=== PATIENT | female | born 1935 | race Caucasian/White ===

== ENCOUNTER 2022-04-05 13:08 | Inpatient (IN) | payer MEDICARE ==
[2022-04-05 14:42] VITALS: BMI 20.7
[2022-04-05] MEDS ORDERED: Ondansetron PF 4 MG/2 ML Vial IVP PRN (18:36)
[2022-04-05] MEDS ORDERED: Acetaminophen 325 MG TAB PO PRN (18:36)
[2022-04-05] MEDS ORDERED: LORATADINE PO PRN (18:41)
[2022-04-05] MEDS ORDERED: PSEUDOEPHEDRINE PO PRN (18:41)
[2022-04-05] MEDS ORDERED: Nitroglycerin 0.4 MG TAB (25 Tab Bottle) SL PRN (18:41)
[2022-04-05] MEDS ORDERED: [UNRECOGNIZED DRUG - OTHER] PO PRN (18:41)
[2022-04-05] MEDS ORDERED: Non-Formulary Medication 1 EACH (Evolocumab [Repatha Sureclick] 140 MG/ML Pen.Injctr) SQ SCH (18:45)
[2022-04-05] MEDS ORDERED: UBIDECARENONE 100 MG PO SCH (18:45)
[2022-04-05] MEDS ORDERED: [UNRECOGNIZED DRUG - OTHER] PO SCH (18:45)
[2022-04-05] MEDS ORDERED: cefTRIAXone\\ROCEPHIN 1 GM in Sodium Chloride 0.9% 100 ML IVPB SCH (19:00)
[2022-04-05] MEDS ORDERED: Meropenem 1 GM in Sodium Chloride 0.9% 100 ML IVPB SCH (20:00)
[2022-04-05] MEDS: Mirtazapine 15 MG TAB PO SCH (20:52)
[2022-04-05] MEDS: Carvedilol 3.125 MG TAB PO SCH (20:52)
[2022-04-05] MEDS: Rosuvastatin 10 MG TAB PO SCH (20:53)
[2022-04-05 21:47] LABS: Bilirubin 1+ (Negative); Blood, Urine 10 (Negative); Clarity Clear (Clear); Glucose, Urine (Dipstick) Normal (Negative); Ketone, Urine 150 mg/dL (Negative); Leukocyte Negative (Negative); Nitrite Negative (Negative); Protein, Urine (Dipstick) 30 mg/dl (Neg-Trace)
[2022-04-05 22:46] LABS: Bacteria/HPF Rare-Few HPF (None Seen); RBC/HPF 0-3 HPF (0-3); Squamous Epithelial 0-3 HPF (0-3); Transitional Epithelial 0-3 HPF (None Seen)
[2022-04-06] MEDS ORDERED: Amlodipine 5 MG TAB PO SCH (00:30)
[2022-04-06] MEDS: Acetaminophen 325 MG TAB PO PRN (01:20)
[2022-04-06] MEDS: Meropenem 1 GM in Sodium Chloride 0.9% 100 ML IVPB SCH ×2 (04:40→15:51)
[2022-04-06 05:06] LABS: #Eosinphils 0.1 10x3/uL (0.0-0.5); #Monocytes 0.5 10x3/uL (0.0-1.1); #Neutrophils 3.4 10x3/uL (1.5-8.4); %Basophils 0.2 % (0.0-2.0); %Eosinophils 2.3 % (0.0-6.0); %Lymphocytes 27.5 % (18.0-47.0); %Monocytes 9.5 % (0.0-10.0); %Neutrophils 60.3 % (40.0-75.0); Hemoglobin 9.5 g/dL (12.0-15.5); Mean Corpuscular HGB CONC 33.2 g/dL (32.0-36.0); Mean Corpuscular Hemoglobin 31.4 pg (27.0-33.0); Mean Corpuscular Volume 94.4 fl (81.6-98.3); Platelet Count 171 10x3/uL (150-450); RBC Distribution Width 13.6 % (11.5-14.5); Red Blood Cell (RBC) Count 3.03 10x6/uL (3.90-5.03); White Blood Cell (WBC) Count 5.6 10x3/uL (3.5-10.5)
[2022-04-06 05:27] LABS: Anion Gap 15 mmol/L (10-20); BUN (Urea Nitrogen) 15 mg/dL (9.8-20.1); Calc. Creatinine Clearance 47 mL/min (70-130); Calcium 9.3 mg/dL (7.8-10.44); Carbon Dioxide 22 mmol/L (23-31); Chloride 109 mmol/L (98-107); Estimated GFR 76; Glucose 77 mg/dL (83-110); Potassium 3.7 mmol/L (3.5-5.1); Sodium 142 mmol/L (136-145)
[2022-04-06] MEDS ORDERED: Dextrose 50% Abboject 50 ML SYRINGE ONE (08:07)
[2022-04-06] MEDS ORDERED: Dextrose 50% Abboject 50 ML SYRINGE SLOW IVP SCH (08:30)
[2022-04-06] MEDS: Carvedilol 3.125 MG TAB PO SCH ×2 (11:32→21:00)
[2022-04-06] MEDS: Aspirin 81 mg Enteric Coated Tablet PO SCH (11:32)
[2022-04-06] MEDS: Multivit, Therapeutic 1 TAB PO SCH (11:32)
[2022-04-06] MEDS: Mirtazapine 15 MG TAB PO SCH (20:59)
[2022-04-06] MEDS: Rosuvastatin 10 MG TAB PO SCH (21:00)
[2022-04-07] MEDS: Meropenem 1 GM in Sodium Chloride 0.9% 100 ML IVPB SCH (04:51)
[2022-04-07] MEDS: Multivit, Therapeutic 1 TAB PO SCH (09:16)
[2022-04-07] MEDS: Aspirin 81 mg Enteric Coated Tablet PO SCH (09:16)
[2022-04-07] MEDS: Carvedilol 3.125 MG TAB PO SCH ×2 (09:16→21:00)
[2022-04-07 09:22] LABS: #Eosinphils 0.1 10x3/uL (0.0-0.5); #Monocytes 0.5 10x3/uL (0.0-1.1); %Basophils 0.2 % (0.0-2.0); %Eosinophils 1.2 % (0.0-6.0); %Lymphocytes 28.5 % (18.0-47.0); %Monocytes 11.6 % (0.0-10.0); Hemoglobin 9.3 g/dL (12.0-15.5); Mean Corpuscular HGB CONC 32.9 g/dL (32.0-36.0); Mean Corpuscular Hemoglobin 31.2 pg (27.0-33.0); Mean Platelet Volume 11.8 fl (7.4-10.4); Platelet Count 164 10x3/uL (150-450); RBC Distribution Width 13.7 % (11.5-14.5); Red Blood Cell (RBC) Count 2.98 10x6/uL (3.90-5.03); White Blood Cell (WBC) Count 4.1 10x3/uL (3.5-10.5)
[2022-04-07 09:23] LABS: #Neutrophils 2.4 10x3/uL (1.5-8.4); %Neutrophils 58.5 % (40.0-75.0)
[2022-04-07 09:35] LABS: Anion Gap 11 mmol/L (10-20); BUN (Urea Nitrogen) 16 mg/dL (9.8-20.1); Calc. Creatinine Clearance 45 mL/min (70-130); Calcium 9.2 mg/dL (7.8-10.44); Carbon Dioxide 25 mmol/L (23-31); Chloride 108 mmol/L (98-107); Estimated GFR 72; Glucose 82 mg/dL (83-110); Potassium 3.7 mmol/L (3.5-5.1); Sodium 140 mmol/L (136-145)
[2022-04-07] MEDS ORDERED: Nitrofurantoin Monohyd/M-Cryst 100 MG CAP PO SCH (11:00)
[2022-04-07] MEDS: Mirtazapine 15 MG TAB PO SCH (21:00)
[2022-04-07] MEDS: Rosuvastatin 10 MG TAB PO SCH (21:00)
[2022-04-07] MEDS: Nitrofurantoin Monohyd/M-Cryst 100 MG CAP PO SCH (21:01)
[2022-04-08 04:09] LABS: #Eosinphils 0.1 10x3/uL (0.0-0.5); #Monocytes 0.7 10x3/uL (0.0-1.1); #Neutrophils 2.8 10x3/uL (1.5-8.4); %Basophils 0.2 % (0.0-2.0); %Eosinophils 2.3 % (0.0-6.0); %Lymphocytes 30.7 % (18.0-47.0); %Monocytes 13.2 % (0.0-10.0); %Neutrophils 53.4 % (40.0-75.0); Hemoglobin 9.6 g/dL (12.0-15.5); Mean Corpuscular HGB CONC 33.4 g/dL (32.0-36.0); Mean Corpuscular Hemoglobin 31.3 pg (27.0-33.0); Mean Corpuscular Volume 93.5 fl (81.6-98.3); Mean Platelet Volume 11.4 fl (7.4-10.4); Platelet Count 162 10x3/uL (150-450); RBC Distribution Width 13.5 % (11.5-14.5); Red Blood Cell (RBC) Count 3.07 10x6/uL (3.90-5.03); White Blood Cell (WBC) Count 5.2 10x3/uL (3.5-10.5)
[2022-04-08 04:28] LABS: Anion Gap 14 mmol/L (10-20); BUN (Urea Nitrogen) 22 mg/dL (9.8-20.1); Calc. Creatinine Clearance 47 mL/min (70-130); Calcium 9.3 mg/dL (7.8-10.44); Carbon Dioxide 23 mmol/L (23-31); Chloride 108 mmol/L (98-107); Estimated GFR 75; Glucose 87 mg/dL (83-110); Potassium 3.9 mmol/L (3.5-5.1); Sodium 141 mmol/L (136-145)
[2022-04-08] MEDS: Multivit, Therapeutic 1 TAB PO SCH (11:53)
[2022-04-08] MEDS: Aspirin 81 mg Enteric Coated Tablet PO SCH (11:54)
[2022-04-08] MEDS: Carvedilol 3.125 MG TAB PO SCH ×2 (11:54→20:32)
[2022-04-08] MEDS: Nitrofurantoin Monohyd/M-Cryst 100 MG CAP PO SCH ×2 (11:54→20:32)
[2022-04-08 12:16] LABS: ALT (SGPT) 13 U/L (8-55); AST (SGOT) 20 U/L (5-34); Albumin 3.4 g/dL (3.4-4.8); Alkaline Phosphatase 58 U/L (40-110); Bilirubin, Direct 0.2 mg/dL (0.1-0.3); Bilirubin, Total 0.4 mg/dL (0.2-1.2)
[2022-04-08 14:41] LABS: HIV (1/2) Antibody/Antigen Non-Reactive (NonReactive); HIV 1/2 INDEX 0.28 S/CO (<1.00); Syphilis Antibody Nonreactive (Nonreactive); Syphilis Antibody Index 0.32 S/CO (<1.00 Non-Reactive)
[2022-04-08] MEDS: Mirtazapine 15 MG TAB PO SCH (20:32)
[2022-04-08] MEDS: Rosuvastatin 10 MG TAB PO SCH (20:32)
[2022-04-08 21:40] LABS: Vitamin B12 501 pg/mL (211-911)
[2022-04-08] MEDS: Acetaminophen 325 MG TAB PO PRN (22:12)
[2022-04-09 05:17] LABS: Anion Gap 14 mmol/L (10-20); BUN (Urea Nitrogen) 20 mg/dL (9.8-20.1); Calc. Creatinine Clearance 50 mL/min (70-130); Calcium 9.4 mg/dL (7.8-10.44); Carbon Dioxide 23 mmol/L (23-31); Chloride 108 mmol/L (98-107); Estimated GFR 81; Glucose 87 mg/dL (83-110); Potassium 3.7 mmol/L (3.5-5.1); Sodium 141 mmol/L (136-145)
[2022-04-09 05:20] LABS: Hemoglobin 8.9 g/dL (12.0-15.5); Mean Corpuscular HGB CONC 32.7 g/dL (32.0-36.0); Mean Corpuscular Hemoglobin 30.9 pg (27.0-33.0); Mean Corpuscular Volume 94.4 fl (81.6-98.3); Mean Platelet Volume 11.7 fl (7.4-10.4); Platelet Count 146 10x3/uL (150-450); RBC Distribution Width 13.6 % (11.5-14.5); Red Blood Cell (RBC) Count 2.88 10x6/uL (3.90-5.03); White Blood Cell (WBC) Count 4.9 10x3/uL (3.5-10.5)
[2022-04-09 05:58] LABS: MDiff Complete? YES
[2022-04-09 06:55] LABS: Eosinophils 1 % (0-10); Lymphocytes 34 % (21-51); Monocytes 15 % (0-10); Neutrophil 50 % (42-75); Platelet Morphology Comment Appears Adequate; RBC Morphology Normal
[2022-04-09] MEDS: Multivit, Therapeutic 1 TAB PO SCH (10:57)
[2022-04-09] MEDS: Enoxaparin Sodium 40 MG/0.4 ML SYRINGE SC SCH (10:58)
[2022-04-09] MEDS: Carvedilol 3.125 MG TAB PO SCH ×2 (10:58→20:46)
[2022-04-09] MEDS: Nitrofurantoin Monohyd/M-Cryst 100 MG CAP PO SCH ×2 (10:58→20:47)
[2022-04-09] MEDS: Aspirin 81 mg Enteric Coated Tablet PO SCH (10:58)
[2022-04-09] MEDS ORDERED: Senokot S 8.6-50 MG TAB PO SCH (12:00)
[2022-04-09] MEDS ORDERED: Polyethylene Glycol 3350 17 GM Packet PO SCH (12:00)
[2022-04-09] MEDS: Mirtazapine 15 MG TAB PO SCH (20:46)
[2022-04-09] MEDS: Senokot S 8.6-50 MG TAB PO SCH (20:47)
[2022-04-09] MEDS: Rosuvastatin 10 MG TAB PO SCH (20:47)
[2022-04-10 05:53] LABS: #Eosinphils 0.1 10x3/uL (0.0-0.5); #Monocytes 0.6 10x3/uL (0.0-1.1); #Neutrophils 2.1 10x3/uL (1.5-8.4); %Basophils 0.2 % (0.0-2.0); %Eosinophils 2.1 % (0.0-6.0); %Lymphocytes 34.6 % (18.0-47.0); %Monocytes 14.6 % (0.0-10.0); %Neutrophils 48.3 % (40.0-75.0); Hemoglobin 9.2 g/dL (12.0-15.5); Mean Corpuscular HGB CONC 32.3 g/dL (32.0-36.0); Mean Corpuscular Hemoglobin 30.8 pg (27.0-33.0); Mean Corpuscular Volume 95.3 fl (81.6-98.3); Mean Platelet Volume 11.9 fl (7.4-10.4); Platelet Count 152 10x3/uL (150-450); RBC Distribution Width 13.3 % (11.5-14.5); Red Blood Cell (RBC) Count 2.99 10x6/uL (3.90-5.03); White Blood Cell (WBC) Count 4.4 10x3/uL (3.5-10.5)
[2022-04-10 06:04] LABS: Anion Gap 15 mmol/L (10-20); BUN (Urea Nitrogen) 23 mg/dL (9.8-20.1); Calc. Creatinine Clearance 52 mL/min (70-130); Calcium 9.6 mg/dL (7.8-10.44); Carbon Dioxide 23 mmol/L (23-31); Chloride 106 mmol/L (98-107); Estimated GFR 85; Glucose 80 mg/dL (83-110); Potassium 3.8 mmol/L (3.5-5.1); Sodium 140 mmol/L (136-145)
[2022-04-10] MEDS ORDERED: Polyethylene Glycol 3350 17 GM Packet PO SCH (09:00)
[2022-04-10] MEDS: Multivit, Therapeutic 1 TAB PO SCH (10:22)
[2022-04-10] MEDS: Aspirin 81 mg Enteric Coated Tablet PO SCH (10:23)
[2022-04-10] MEDS: Carvedilol 3.125 MG TAB PO SCH ×2 (10:23→20:08)
[2022-04-10] MEDS: Senokot S 8.6-50 MG TAB PO SCH ×3 (10:23→20:41)
[2022-04-10] MEDS: Nitrofurantoin Monohyd/M-Cryst 100 MG CAP PO SCH ×2 (10:23→20:09)
[2022-04-10] MEDS: Enoxaparin Sodium 40 MG/0.4 ML SYRINGE SC SCH (10:23)
[2022-04-10] MEDS: Mirtazapine 15 MG TAB PO SCH (20:08)
[2022-04-10] MEDS: Rosuvastatin 10 MG TAB PO SCH (20:08)
[2022-04-10 22:11] VITALS: BP 131/62; TEMP 98.6
== END 2022-04-10 22:26 | disposition short-term general hospital (02) | DRG 880 ==
LOC: CSHTELE 13:08 → INTOOBSV 13:08 → OBSVTOIN 04-07 09:43
PROVIDERS: ADMIT Family Medicine; ATTEND Family Medicine
DX: F41.9 Anxiety disorder, unspecified (principal); G93.41 Metabolic encephalopathy; I50.32 Chronic diastolic (congestive) heart failure; N39.0 Urinary tract infection, site not specified; N17.9 Acute kidney failure, unspecified; R44.3 Hallucinations, unspecified; I13.0 Hypertensive heart and chronic kidney disease with heart failure and stage 1 through stage 4 chronic kidney disease, or unspecified chronic kidney disease; F32.A Depression, unspecified; I25.10 Atherosclerotic heart disease of native coronary artery without angina pectoris; E78.5 Hyperlipidemia, unspecified; R33.9 Retention of urine, unspecified; N18.9 Chronic kidney disease, unspecified; Z88.7 Allergy status to serum and vaccine; Z88.1 Allergy status to other antibiotic agents; Z91.012 Allergy to eggs; Z79.82 Long term (current) use of aspirin; Z79.899 Other long term (current) drug therapy; Z95.1 Presence of aortocoronary bypass graft; I25.2 Old myocardial infarction; Z95.5 Presence of coronary angioplasty implant and graft
CPT/HCPCS: 36415; 36416; 51702; 70450; 70551; 80048; 80053; 80061; 80069; 80076; 80306; 80307; 81003; 81015; 82607; 84443; 84484; 85025; 86780; 87086; 87389; 93005; 94760; 96360; 96361; 96374; 96375; 96376; 97139; G0378; J1650; J2185; J3490; J7050; J7999; U0002

== ENCOUNTER 2022-08-14 12:52 | Outpatient (CLI) | payer MEDICARE, BC | END 2022-08-14 12:53 | disposition home or self-care (01) | LOC: CSHWCC 12:52 | PROVIDERS: ATTEND Nurse Practitioner Family | DX: L89.153 Pressure ulcer of sacral region, stage 3 (principal) | CPT/HCPCS: 97139; G0463; 99204 ==

== ENCOUNTER 2022-09-06 10:14 | Outpatient (CLI) | payer MEDICARE, BC | END 2022-09-06 10:15 | disposition home or self-care (01) | LOC: CSHWCC 10:14 | PROVIDERS: ATTEND Nurse Practitioner Family | DX: L89.153 Pressure ulcer of sacral region, stage 3 (principal) ==